=== PATIENT | male | born 1995 | race Hispanic/Latino ===

== ENCOUNTER 2020-09-10 01:13 | Emergency (ER) | payer SELFPAY ==
[~2020-09-10] VITALS: Ht 165.1 cm; Wt 97.5 kg
[2020-09-10 01:53] VITALS: BP 151/91
[2020-09-10] MEDS ORDERED: IPRA4AER IH (04:57)
[2020-09-10] MEDS ORDERED: ONDA4TAB4 PO (04:57)
== END 2020-09-10 05:10 | disposition home or self-care (01) ==
LOC: EDH 01:13
DX: U07.1 COVID-19 (principal)
CPT/HCPCS: 87635; 87804 ×2; 99283; C9803